=== PATIENT | male | born 1985 | race Caucasian/White ===

== ENCOUNTER 2016-09-21 12:14 | Outpatient (CLI) | END 2016-09-21 12:15 | disposition home or self-care (01) | LOC: LAB 12:14 | PROVIDERS: ATTEND Nurse Practitioner Family | DX: J06.9 Acute upper respiratory infection, unspecified (principal) | CPT/HCPCS: 87651; 87880 ==

== ENCOUNTER 2016-10-02 15:09 | Outpatient (CLI) ==
[2016-10-02 16:28] LABS: MONO INTERNAL QC INTERNAL QC VALID
== END 2016-10-02 15:10 | disposition home or self-care (01) ==
LOC: RHC 15:09
PROVIDERS: ATTEND Nurse Practitioner Family
DX: J02.9 Acute pharyngitis, unspecified (principal); R05 Cough
CPT/HCPCS: 36415; 86308

== ENCOUNTER 2017-02-09 16:21 | Outpatient (CLI) ==
[2017-02-09 16:34] LABS: FLU INTERNAL QC INTERNAL QC VALID; RAPID FLU A POSITIVE (NEGATIVE); RAPID FLU B NEGATIVE (NEGATIVE)
== END 2017-02-09 16:22 | disposition home or self-care (01) ==
LOC: LAB 16:21
PROVIDERS: ATTEND Emergency Medicine
DX: J06.9 Acute upper respiratory infection, unspecified (principal)
CPT/HCPCS: 87804